=== PATIENT | male | born 1980 | race Caucasian/White ===

== ENCOUNTER 2022-11-15 20:50 | Inpatient (IN) | payer OTHER ==
[~2022-11-15] VITALS: Ht 170.2 cm; Wt 74.8 kg
[2022-11-15 21:10] VITALS: BP 126/88; PULSE 115; RESP 20; TEMP 98; O2SAT 98
--- NOTE | 2022-11-15 21:24 | NUR ---
pt went to lobby
--- NOTE | 2022-11-15 21:48 | NUR ---
PT AMBULATED TO BED 11.
--- NOTE | 2022-11-15 22:20 | NUR ---
BETINAD examining patient.
--- NOTE | 2022-11-15 22:35 | NUR ---
Patient taken to CT.
[2022-11-15 22:42] LABS: BASOPHILS % (AUTO) 0.4 % (0.0-2.0); EOSINOPHILS # (AUTO) 0.2 K/uL (0-0.4); EOSINOPHILS % (AUTO) 2.7 % (0.0-4.0); HEMATOCRIT 25.4 % (36-52); HEMOGLOBIN 8.8 g/dL (12.0-18.0); LYMPHOCYTES # (AUTO) 0.4 K/uL (2.0-11.5); LYMPHOCYTES % (AUTO) 5.6 % (20.5-51.1); MEAN CORPUSCULAR HEMOGLOBIN 36 pg (27-31); MEAN CORPUSCULAR HGB CONC 35 g/dL (33-37); MEAN CORPUSCULAR VOLUME 102.7 fL (80-94); MONOCYTES # (AUTO) 0.7 K/uL (0.8-1.0); MONOCYTES % (AUTO) 9.7 % (1.7-9.3); NEUTROPHILS # (AUTO) 5.5 K/uL (1.8-7.7); NEUTROPHILS % (AUTO) 81.6 % (42.2-75.2); PLATELET COUNT (AUTO) 106 K/uL (140-450); RED BLOOD CELL COUNT(AUTO) 2.47 MIL/uL (4.20-6.10); RED CELL DISTRIBUTION WIDTH 18.1 % (11.6-13.7); WHITE BLOOD COUNT (AUTO) 6.8 K/uL (4.8-10.8)
--- NOTE | 2022-11-15 22:52 | NUR ---
Patient is a 41/M, known case of liver cirrhosis, came in due to a month long history of dull, generalized abdominal pain, 9/10, accompanied by bloatedness, occasional shortness of breath and jaundice. Patient denies fever/chills, nausea/vomiting/diarrhea, cough/colds or chest pain. Patient had paracentesis 1 week ago. PMHx: Liver Cirrhosis NKA
[2022-11-15] MEDS ORDERED: PANT40EC PO (22:56)
[2022-11-15 23:09] LABS: ALBUMIN 1.9 g/dL (3.4-5.0); CARBON DIOXIDE 24.7 mmol/L (21-32); POTASSIUM 3.7 mmol/L (3.5-5.1); TOTAL BILIRUBIN 21.6 mg/dL (0.0-1.0)
[2022-11-15 23:13] LABS: CREATININE 1.1 mg/dL (0.6-1.3)
[2022-11-15 23:17] LABS: PROTHROMBIN TIME 21.5 secs (10.8-13.4)
--- NOTE | 2022-11-16 00:11 | NUR ---
Patient in awake in bed with no signs of acute distress at this time. Side rails up and call light within reach.
--- NOTE | 2022-11-16 00:42 | NUR ---
URINE TO LAB
[2022-11-16] MEDS ORDERED: MORPHINE SULFATE 4 MG/ML SYR IVP ONE (00:45)
[2022-11-16] MEDS ORDERED: POTASSIUM CHLORIDE 10 MEQ TABER PO PRN (00:55)
[2022-11-16] MEDS ORDERED: ACETAMINOPHEN 325 MG TAB PO PRN (00:55)
[2022-11-16] MEDS ORDERED: LORazepam 1 MG TAB PO PRN (00:55)
[2022-11-16] MEDS ORDERED: MORPHINE SULFATE 2 MG/ML SYR IVP PRN (00:55)
[2022-11-16] MEDS ORDERED: MAG SULF 2000 MG/WATER PREMIX 50 ML IV PRN (00:55)
[2022-11-16] MEDS ORDERED: KCL 20 MEQ IN 100 mL PREMIX 200 ML IV PRN (00:55)
[2022-11-16] MEDS ORDERED: ZOLPIDEM 5 MG TAB PO PRN (00:55)
[2022-11-16] MEDS ORDERED: ONDANSETRON 4 MG/2 ML VIAL IVP PRN (00:55)
[2022-11-16 01:30] LABS: BILIRUBIN,URINE 3+ (NEGATIVE); BLOOD, URINE 2+ (NEGATIVE); LEUKOCYTE ESTERASE ,URINE TRACE (NEGATIVE); NITRITE, URINE POSITIVE (NEGATIVE); PH,URINE 6.5 (5.0-9.0); UGLUCOSE 1+ (NEGATIVE)
[2022-11-16 01:34] LABS: APPEARANCE,URINE HAZY (CLEAR); COLOR,URINE AMBER (YELLOW)
[2022-11-16 01:35] LABS: RBC,URINE 0-5 /HPF (0-5)
[2022-11-16 01:37] LABS: COARSE GRANULAR CASTS,URINE 0-5 /LPF (None Seen)
[2022-11-16] MEDS ORDERED: MORPHINE SULFATE 2 MG/ML SYR IVP ONE (02:00)
--- NOTE | 2022-11-16 02:04 | NUR ---
Patient asleep and comfortable in bed with no signs of acute distress at this time. Side rails up and call light within reach.
[2022-11-16 08:30] VITALS: BP 134/89; PULSE 91; RESP 20; TEMP 98.1; O2SAT 95
[2022-11-16 09:00] VITALS: RESP 18; O2SAT 95
[2022-11-16] MEDS: MORPHINE SULFATE 4 MG/ML SYR IVP PRN ×3 (10:20→20:22)
[2022-11-16] MEDS: DOCUSATE SODIUM 100 MG GELCAP PO SCH (10:24)
--- NOTE | 2022-11-16 11:25 | NUR ---
PATIENT HAS BEEN SCREENED AND CATEGORIZED MODERATE NUTRITION RISK. PATIENT WILL BE SEEN WITHIN 3-5 DAYS OF ADMISSION. 11/16/22-11/21/[address]
[2022-11-16] MEDS: FUROSEMIDE 40 MG TAB PO SCH ×2 (12:25→20:47)
[2022-11-16 16:00] VITALS: BP 131/90; PULSE 95; RESP 20; TEMP 98.1; O2SAT 97
[2022-11-16] MEDS: LACTULOSE 20 GM/30 ML UDC PO SCH ×2 (16:17→20:47)
--- NOTE | 2022-11-16 19:30 | NUR ---
RECEIVED REPORT FROM DAY SHIFT NURSE JUNIATA FOR CONTINUITY OF CARE. PATIENT IS A&O X4. PATIENT IS ON ROOM AIR, BREATHING IS NORMAL WITH SYMMETRICAL RISE AND FALL OF CHEST. IV IS A 20G RAC, NO FLUIDS RUNNING AT THIS TIME. PATIENT IS LYING SEMI-FOWLERS IN BED, AWAKE; VISITING WITH FAMILY MEMBER AT BEDSIDE. BED IS IN LOWEST POSITION, WHEELS LOCKED, CALL LIGHT IN PLACE. WILL CONTINUE TO OBSERVE PATIENT.
[2022-11-16 20:00] VITALS: BP 134/86; PULSE 104; RESP 18; TEMP 97.6; O2SAT 94
--- NOTE | 2022-11-16 21:24 | NUR ---
REASSESSMENT WAS MARKED NOT DONE FOR PREVIOUS SHIFT, BECAUSE DAY SHIFT NURSE DID NOT CHART ON REASSESSMENT OF MORPHINE. NOT SURE IF REASSESSMENT WAS PHYSICALLY DONE.
--- NOTE | 2022-11-16 21:30 | NUR ---
2100 MEDICATION ADMINISTERED TO PATIENT SUCCESSFULLY WITHOUT ANY ISSUES WITH SWALLOWING. PATIENT REQUESTED PAIN MEDICATION FOR PAIN. CHECKED VITALS AND CHART; MORPHINE WAS APPROPRIATE TO ADMINISTER. ADMINISTERED MEDICATION SUCCESSFULLY WITHOUT ANY ISSUES WITH IV. REASSESSED PATIENT AT 2122; PATIENT WAS SLEEPING. BREATHING WAS NORMAL WITH SYMMETRICAL RISE AND FALL OF CHEST. WILL CONTINUE TO OBSERVE PATIENT.
[2022-11-16] MEDS ORDERED: PHYTONADIONE 10 MG in NACL 0.9% 50 ML IV ONE (22:40)
[2022-11-17] MEDS ORDERED: PHYTONADIONE 10 MG/ML AMP SUBQ ONE (00:05)
--- NOTE | 2022-11-17 00:30 | NUR ---
NOTIFIED DEMAND EQUIPMENT REPAIRER PHYSICIAN (DR. WILSON) THAT PATIENT'S INR WAS 2.12. MD ORDERED VITAMIN K 10MG IV AND REPEAT INR IN MORNING. PUT ORDER IN. FOLLOWED UP WITH PHARMACY ON VERIFICATION ON VITAMIN K; PHARMACIST JOURDAN INFORMED ME THAT VITAMIN K IV WAS FOR EMERGENCY USE ONLY DUE TO POSSIBLE ANAPHYLAXES AND RECOMMENDED SUBCUTANEOUS VITAMIN K. MESSAGED DR. WILSON OF PHARMACIST'S RECOMMENDATION; DR. WILSON AUTHORIZED VITAMIN K SUBCUTANEOUS. ADMINISTERED MEDICATION TO PATIENT WITHOUT ANY ISSUES. WILL CONTINUE TO OBSERVE PATIENT.
[2022-11-17] MEDS: MORPHINE SULFATE 4 MG/ML SYR IVP PRN (02:23)
--- NOTE | 2022-11-17 03:30 | NUR ---
PATIENT CALLED AND REQUESTED MORPHINE FOR 9/10 PAIN. CHECKED VITALS AND CHART; MORPHINE WAS APPROPRIATE TO ADMINISTER. MEDICATION WAS ADMINISTERED SUCCESSFULLY WITHOUT ANY ISSUE WITH IV. REASSESSED MEDICATION ADMINISTRATION; PATIENT WAS SLEEPING. WILL CONTINUE TO OBSERVE PATIENT.
[2022-11-17 04:00] VITALS: BP 127/90; PULSE 102; RESP 20; TEMP 98.4; O2SAT 96
--- NOTE | 2022-11-17 06:00 | NUR ---
OBTAINED CONSENT FROM PATIENT FOR PARACENTESIS. PATIENT IS LYING IN BED, BREATHING IS NORMAL WITH SYMMETRICAL RISE AND FALL OF CHEST. WILL CONTINUE TO OBSERVE PATIENT.
[2022-11-17 06:04] LABS: BASOPHILS # (AUTO) 0.2 K/uL (0.00-0.22); BASOPHILS % (AUTO) 3.5 % (0.0-2.0); EOSINOPHILS # (AUTO) 0.3 K/uL (0-0.4); HEMATOCRIT 25.6 % (36-52); HEMOGLOBIN 8.8 g/dL (12.0-18.0); LYMPHOCYTES # (AUTO) 0.4 K/uL (2.0-11.5); LYMPHOCYTES % (AUTO) 7.1 % (20.5-51.1); MEAN CORPUSCULAR HEMOGLOBIN 35 pg (27-31); MEAN CORPUSCULAR HGB CONC 35 g/dL (33-37); MEAN CORPUSCULAR VOLUME 102.6 fL (80-94); MONOCYTES # (AUTO) 0.8 K/uL (0.8-1.0); MONOCYTES % (AUTO) 11.8 % (1.7-9.3); NEUTROPHILS # (AUTO) 4.6 K/uL (1.8-7.7); NEUTROPHILS % (AUTO) 72.6 % (42.2-75.2); PLATELET COUNT (AUTO) 110 K/uL (140-450); RED BLOOD CELL COUNT(AUTO) 2.49 MIL/uL (4.20-6.10); RED CELL DISTRIBUTION WIDTH 18.1 % (11.6-13.7); WHITE BLOOD COUNT (AUTO) 6.4 K/uL (4.8-10.8)
[2022-11-17 06:26] LABS: PROTHROMBIN TIME 22.3 secs (10.8-13.4)
[2022-11-17 06:49] LABS: ANION GAP 10.7 (8-16); CARBON DIOXIDE 27.1 mmol/L (21-32); CREATININE 1.4 mg/dL (0.6-1.3); POTASSIUM 3.8 mmol/L (3.5-5.1)
--- NOTE | 2022-11-17 07:41 | NUR ---
ENDORSED TO DAY SHIFT NURSE IRIS FOR CONTINUITY OF CARE. PATIENT IS STABLE.
--- NOTE | 2022-11-17 08:03 | NUR ---
RECEIVED REPORT FROM LOG MANAGER NURSE FOR CONTINUITY OF CARE. PATIENT IS AWAKE, ALERT AND ORIENTED X4, CONTINENT AND AMBULATORY. CURRENTLY ON ROOM AIR WITH NO APPARENT SIGNS OF ACUTE DISTRESS NOTED. PATIENT STATES NO PAIN AT THIS TIME. JAUNDICE NOTED IN BOTH EYES WELL PATIENTS SKIN, NO OPEN WOUNDS NOTED. POC DISCUSSED, CALL LIGHT WITHIN REACH, SAFETY MEASURES IN PLACE. WILL MAKE FREQUENT ROUNDS THROUGHOUT SHIFT.
[2022-11-17] MEDS: DOCUSATE SODIUM 100 MG GELCAP PO SCH (08:47)
[2022-11-17] MEDS: FUROSEMIDE 40 MG TAB PO SCH (08:48)
[2022-11-17] MEDS: LACTULOSE 20 GM/30 ML UDC PO SCH (08:49)
--- NOTE | 2022-11-17 09:02 | NUR ---
SCHEDULED MEDICATIONS ADMINISTERED. NO S/SX OF ACUTE DISTRESS NOTED AT THIS TIME. WILL CONTINUE TO MONITOR.
[2022-11-17 12:00] VITALS: BP 116/72; PULSE 84; RESP 20; TEMP 97.2; O2SAT 96
--- NOTE | 2022-11-17 14:30 | NUR ---
PATIENT LEFT AMA, EDUCATED THE PATIENT ON THE RISKS BUT STILL CHOSE TO SIGN AMA PAPERS. IV SITE AND ARM BANDS REMOVED. PT BELONGINGS WITH PATIENT.
--- NOTE | 2022-11-17 14:58 | NUR ---
DC PLANNIN YRS OLD MALE PATIENT WAS ADMITTED FROM HOME WITH A DX OF INTRACTABLE ABD PAIN. PATIENT HAS A HX OF LIVER CIRRHOSIS RECURRENT ASCITES HTN AND GASTRITIS. CT ABD/PELVIS SHOWED CIRRHOTIC LIVER. BLOOD AND URINE CULTURE PENDING. ADMINISTERED HOME MEDS. CONSULT IR FOR ULTRASOUND -GUIDED PARACENTESIS. DC PLAN TO GO HOME WHEN STABLE. CM TO FOLLOW
== END 2022-11-17 14:30 | disposition left against medical advice (07) | DRG 280 ==
LOC: MED 20:50 → MTU 11-16 01:01
PROVIDERS: ADMIT Student in an Organized Health Care Education/Training Program; ATTEND Student in an Organized Health Care Education/Training Program
DX: K70.31 Alcoholic cirrhosis of liver with ascites (principal); E43 Unspecified severe protein-calorie malnutrition; D84.9 Immunodeficiency, unspecified; E86.1 Hypovolemia; D50.9 Iron deficiency anemia, unspecified; Z53.29 Procedure and treatment not carried out because of patient's decision for other reasons; I10 Essential (primary) hypertension; Z90.49 Acquired absence of other specified parts of digestive tract; Z68.25 Body mass index [BMI] 25.0-25.9, adult
CPT/HCPCS: 36415; 80048; 80053; 81001; 82140; 83605; 83690; 83735; 85025; 85610; 85730; 87040; 87081; 87086; 96374; 99285; J2270; J3430

== ENCOUNTER 2022-11-17 15:23 | Inpatient (IN) | payer OTHER ==
[~2022-11-17] VITALS: Ht 170.2 cm; Wt 74.8 kg
[~2022-11-17 15:23] MED LIST: PANT40EC PO
[2022-11-17 16:27] VITALS: BP 122/70; PULSE 108; RESP 20; TEMP 97.9; O2SAT 97
--- NOTE | 2022-11-17 19:56 | NUR ---
PT TO BED 11 AMB
[2022-11-17] MEDS ORDERED: MORPHINE SULFATE 4 MG/ML SYR IVP ONE (20:00)
[2022-11-17] MEDS ORDERED: ONDANSETRON 4 MG/2 ML VIAL IVP PRN (20:20)
[2022-11-17] MEDS ORDERED: ACETAMINOPHEN 325 MG TAB PO PRN (20:20)
[2022-11-17] MEDS ORDERED: HYDROcodone/APAP 5/325 MG 1 TAB TAB PO PRN (20:20)
--- NOTE | 2022-11-17 22:29 | NUR ---
Report given to Inna KIM for transfer of care.
--- NOTE | 2022-11-17 22:36 | NUR ---
PATIENT HAS ORDER FOR US GUIDED PARACENTESIS AND PT-22.3 INR-2.2 PT-39.6, INFORMED DUST COLLECTOR TREATER, CALLED RADIOLOGY SPOKE WITH MCKAYLA, HE SAID TO CALL IN AM. DUST COLLECTOR TREATER MADE AWARE. Addendum: 11/17/22 at 2356 by Inna Spann RN CT GUIDED PARACENTESIS ORDERED.
[2022-11-17 22:45] VITALS: BP 129/86; PULSE 94; RESP 19; TEMP 97.7; O2SAT 96
--- NOTE | 2022-11-17 22:45 | NUR ---
RECEIVED PT A NEW ADMIT FROM ER, PATIENT AMBULATED TO THE BED FROM [facility] WITH STEADY GAIT. AT THE BEDSIDE. DENIES PAIN AT THIS TIME. NO ACUTE RESPIRATORY DISTRESS NOTED. SKIN WARM AND DRY TO TOUCH. ORIENTED TO MST SETTING, UPDATED WHITEBOARD, PROVIDED CALL LIGHT, INSTRUCTIONS ON USE PROVIDED, PT VERBALLY ACKNOWLEDGED. BED IN THE LOWEST AND LOCKED POSITION FOR SAFETY.
--- NOTE | 2022-11-18 00:10 | NUR ---
PATIENT IS ASLEEP. BREATHING EVEN AND UNLABORED. CALL LIGHT WITHIN REACH.
--- NOTE | 2022-11-18 02:01 | NUR ---
ROUNDING DONE. PATIENT IS ASLEEP. BREATHING EVEN AND UNLABORED. CALL LIGHT WITHIN REACH.
[2022-11-18] MEDS: MORPHINE SULFATE 4 MG/ML SYR IVP PRN ×3 (03:25→19:25)
[2022-11-18 04:12] VITALS: BP 123/76; PULSE 95; RESP 18; TEMP 97.4; O2SAT 96
--- NOTE | 2022-11-18 06:21 | NUR ---
PATIENT IS ASLEEP. NO DISTRESS NOTED. ALL NEEDS ATTENDED TO. SAFETY PRECAUTIONS MAINATAINED DURING THE SHIFT, CALL LIGHT REMAINS WITHIN REACH.
[2022-11-18 06:58] LABS: ANION GAP 9.9 (8-16); CARBON DIOXIDE 28.3 mmol/L (21-32); CREATININE 1.3 mg/dL (0.6-1.3); POTASSIUM 3.2 mmol/L (3.5-5.1)
[2022-11-18 06:59] LABS: BASOPHILS # (AUTO) 0.2 K/uL (0.00-0.22); BASOPHILS % (AUTO) 2.8 % (0.0-2.0); EOSINOPHILS # (AUTO) 0.3 K/uL (0-0.4); EOSINOPHILS % (AUTO) 4.8 % (0.0-4.0); HEMATOCRIT 22.4 % (36-52); HEMOGLOBIN 7.9 g/dL (12.0-18.0); LYMPHOCYTES # (AUTO) 0.5 K/uL (2.0-11.5); LYMPHOCYTES % (AUTO) 8.7 % (20.5-51.1); MEAN CORPUSCULAR HEMOGLOBIN 36 pg (27-31); MEAN CORPUSCULAR HGB CONC 36 g/dL (33-37); MEAN CORPUSCULAR VOLUME 102.5 fL (80-94); MONOCYTES # (AUTO) 0.8 K/uL (0.8-1.0); NEUTROPHILS # (AUTO) 4.2 K/uL (1.8-7.7); NEUTROPHILS % (AUTO) 69.7 % (42.2-75.2); PLATELET COUNT (AUTO) 93 K/uL (140-450); RED BLOOD CELL COUNT(AUTO) 2.18 MIL/uL (4.20-6.10); RED CELL DISTRIBUTION WIDTH 18.2 % (11.6-13.7)
--- NOTE | 2022-11-18 07:15 | NUR ---
RECEIVED BEDSIDE REPORT FROM LOAD TEST MECHANIC NURSE FOR CONTINUITY OF CARE. PT IS ASLEEP, NO SIGN OF DISTRESS. CALL LIGHT WITHIN REACH.
[2022-11-18 08:00] VITALS: BP 132/89; PULSE 98; RESP 17; TEMP 97.4; O2SAT 96
--- NOTE | 2022-11-18 08:46 | NUR ---
PATIENT HAS BEEN SCREENED AND CATEGORIZED LOW NUTRITION RISK. PATIENT WILL BE SEEN WITHIN 7 DAYS OF ADMISSION. 11/24/[address]
[2022-11-18 09:06] LABS: PROTHROMBIN TIME 23.4 secs (10.8-13.4)
[2022-11-18 16:00] VITALS: BP 108/81; PULSE 96; PULSE 98; RESP 17; TEMP 98.3; O2SAT 96
[2022-11-18] MEDS ORDERED: PHYTONADIONE 10 MG/ML AMP SUBQ SCH (17:45)
[2022-11-18] MEDS ORDERED: POTASSIUM CHLORIDE 10 MEQ TABER PO PRN (19:00)
--- NOTE | 2022-11-18 19:15 | NUR ---
ENDORSED PT TO DUMP MOTOR OPERATOR NURSE FOR CONTINUITY OF CARE. PT IS AWAKE, NO SIGN OF DISTRESS. CALL LIGHT WITHIN REACH.
--- NOTE | 2022-11-18 19:25 | NUR ---
RECEIVED PT IN BED AWAKE, ALERT AND ORIENTED X 4. FAMILY MEMBER AT THE BEDSIDE. COMPLAINING OF 8/10 ABDOMINAL PAIN, MEDICATED ORDERED. NO ACUTE RESPIRATORY DISTRESS NOTED. SKIN WARM AND DRY TO TOUCH. SAFETY PRECAUTIONS IN PLACE, CALL LIGHT IN REACH,ENCOURAGED TO CALL IF ASSISTANCE IS NEEDED.
[2022-11-18 20:00] VITALS: BP 125/90; PULSE 97; RESP 18; TEMP 98.4; O2SAT 97
--- NOTE | 2022-11-18 20:25 | NUR ---
RE-ASSESSED FOR PAIN, CURRENTLY PT DENIES PAIN. WATCHING TV AT THIS TIME.
--- NOTE | 2022-11-19 | NUR ---
ROUNDING DONE. PATIENT IS ASLEEP. BREATHING EVEN AND UNLABORED. CALL LIGHT WITHIN REACH.
[2022-11-19] MEDS: MORPHINE SULFATE 4 MG/ML SYR IVP PRN ×5 (00:51→23:27)
[2022-11-19 04:00] VITALS: BP 111/79; PULSE 97; RESP 18; TEMP 98.2; O2SAT 97
[2022-11-19 06:03] LABS: BASOPHILS # (AUTO) 0.1 K/uL (0.00-0.22); BASOPHILS % (AUTO) 1.3 % (0.0-2.0); EOSINOPHILS # (AUTO) 0.3 K/uL (0-0.4); EOSINOPHILS % (AUTO) 4.7 % (0.0-4.0); HEMATOCRIT 23.3 % (36-52); HEMOGLOBIN 8.2 g/dL (12.0-18.0); LYMPHOCYTES # (AUTO) 0.4 K/uL (2.0-11.5); LYMPHOCYTES % (AUTO) 7.8 % (20.5-51.1); MEAN CORPUSCULAR HEMOGLOBIN 36 pg (27-31); MEAN CORPUSCULAR HGB CONC 35 g/dL (33-37); MEAN CORPUSCULAR VOLUME 103.5 fL (80-94); MONOCYTES # (AUTO) 0.8 K/uL (0.8-1.0); MONOCYTES % (AUTO) 14.1 % (1.7-9.3); NEUTROPHILS % (AUTO) 72.1 % (42.2-75.2); PLATELET COUNT (AUTO) 97 K/uL (140-450); RED BLOOD CELL COUNT(AUTO) 2.25 MIL/uL (4.20-6.10); RED CELL DISTRIBUTION WIDTH 18.4 % (11.6-13.7); WHITE BLOOD COUNT (AUTO) 5.6 K/uL (4.8-10.8)
--- NOTE | 2022-11-19 06:28 | NUR ---
PATIENT IS ASLEEP. NO DISTRESS NOTED. ALL NEEDS ATTENDED TO. SAFETY PRECAUTIONS MAINTAINED DURING THE SHIFT, CALL LIGHT REMAINS WITHIN REACH.
[2022-11-19 06:43] LABS: ANION GAP 9.2 (8-16); CARBON DIOXIDE 29.3 mmol/L (21-32); CREATININE 1.2 mg/dL (0.6-1.3); POTASSIUM 3.5 mmol/L (3.5-5.1)
--- NOTE | 2022-11-19 07:10 | NUR ---
RECEIVED REPORT FROM ORANGE PICKING SUPERVISOR NURSE FOR CONTINUITY OF CARE. PT STABLE AT THIS TIME.
[2022-11-19 08:00] VITALS: BP 122/89; PULSE 89; RESP 18; TEMP 96.9; O2SAT 96
[2022-11-19 08:19] LABS: PROTHROMBIN TIME 22.6 secs (10.8-13.4)
--- NOTE | 2022-11-19 08:22 | NUR ---
HELD DO TO PTS PT/INR/PTT ALL BEING HIGH. PT SUPPOSED TO HAVE CENTESIS TODAY. Addendum: 11/19/22 at 1017 by Suha Ennis RN PT HEPARIN WAS HELD
[2022-11-19] MEDS ORDERED: PHYTONADIONE 10 MG in NACL 0.9% 50 ML IV SCH (09:30)
--- NOTE | 2022-11-19 11:56 | NUR ---
DC PLANN[age] YRS OLD MALE PATIENT WAS ADMITTED FROM HOME WITH A DX OF ASCITES. PATIENT HAS A HX OF ALCOHOL CIRRHOSIS.PATIENT HAS AN ORDER FOR PARACENTESIS. PER IR UNABLE TO PERFORM PARACENTESIS BECAUSE OF HIGH INR 51.5. ADMINISTERED VIT K AND CONTINUED HOME MEDS. DC PLAN AWAITING FOR THE INR TO BE WNL. CM TO FOLLOW Addendum: 11/20/22 at 1159 by Anushka Cho RN DC PLANNING: INR LEVEL 51.5 ON VITK IV UNABLE TO PERFORM PARACENTESIS AT THIS TIME. CM TO FOLLOW
[2022-11-19 12:39] VITALS: PULSE 89; RESP 18; O2SAT 96
[2022-11-19 16:00] VITALS: BP 117/76; PULSE 94; RESP 18; TEMP 98.3; O2SAT 98
--- NOTE | 2022-11-19 16:16 | NUR ---
Burring Machine Operator ART CONSULTANT conducted a discharge planning assessment with pts. Throughout interview, pt. was guarded did not make eye contact and was short in his responses. ART CONSULTANT confirmed the demographics on the face sheet. Pt . has insight as to why he is in the hospital, stated he is participating in an outpatient program, [place]. Pt. is a long-time drinker and stated he is currently participating in [place] program. He has missed participating in this outpt. due to being hospitalized. ART CONSULTANT asked pt. to bring his discharge paperwork with him when he returns. Pt. has been in contact with [place], [phone], from [place] to alert him of his hospitalization. ART CONSULTANT provided pt. with additional resources and will remain available as needed.
--- NOTE | 2022-11-19 19:18 | NUR ---
ENDORSED TO GREEN FEED ATTENDANT NURSE FOR CONTINUITY OF CARE. PT STABLE AT THIS TIME.
--- NOTE | 2022-11-19 19:19 | NUR ---
RECEIVED BEDSIDE REPORT FROM YAZ KIM FOR CONTINUITY OF CARE. PATIENT IS AWAKE AND STABLE. A&OX4. PATIENT WAS MEDICATED BY YAZ KIM FOR SEVERE PAIN 20 MINUTES AGO. ON ROOM AIR WITH NO APPARENT S/SX OF ACUTE DISTRESS. RESPIRATIONS EVEN AND UNLABORED. IV SITE TO THE RFA 20G PATENT/INTACT SL. PATIENT CURRENTLY ON BR. PLAN OF CARE AND WHITE COMMUNICATION BOARD UPDATED. ALL SAFETY MEASURES IN PLACE. CALL LIGHT WITHIN REACH. ENCOURAGED TO CALL FOR ANY NEEDS/ASSISTANCE. BED IN LOW/LOCKED POSITION. SIDE RAILS X2 UP. WILL CONTINUE TO MONITOR.
[2022-11-19 20:00] VITALS: BP 123/81; PULSE 89; RESP 16; TEMP 98.7; O2SAT 97
--- NOTE | 2022-11-19 21:10 | NUR ---
DID NOT ADMINISTER SCHEDULED HEPARIN DUE TO LOW PLATELET 97. INFORMED PATIENT. PATIENT VERBALIZED UNDERSTANDING. PATIENT REPORTS PRN MEDICATION WAS EFFECTIVE THAT WAS ADMINISTERED IN 1649 SINCE PAIN IS REDUCED TO 4/10. RESPIRATIONS EVEN AND UNLABORED WITH NO APPARENT S/SX OF ACUTE DISTRESS. WHITE COMMUNICATION BOARD UPDATED. ALL SAFETY MEASURES IN PLACE. CALL LIGHT WITHIN REACH. ENCOURAGED TO CALL FOR ANY NEEDS/ASSISTANCE. BED IN LOW/LOCKED POSITION. SIDE RAILS X2 UP. WILL CONTINUE TO MONITOR.
--- NOTE | 2022-11-19 23:05 | NUR ---
PATIENT C/O 12/11 ABDOMINAL PAIN. ENDORSED TO SHADE RN FOR IV PRN COVERAGE. BP AND HR WNL. RESPIRATIONS EVEN AND UNLABORED WITH NO APPARENT S/SX OF ACUTE DISTRESS. WHITE COMMUNICATION BOARD UPDATED. ALL SAFETY MEASURES IN PLACE. CALL LIGHT WITHIN REACH. ENCOURAGED TO CALL FOR ANY NEEDS/ASSISTANCE. BED IN LOW/LOCKED POSITION. WILL CONTINUE TO MONITOR.
--- NOTE | 2022-11-20 03:10 | NUR ---
CHECKED PATIENT. PATIENT IS STABLE AND ASLEEP WITH NO FACIAL GRIMACING. FLACC=0. CHEST IS RISING AND FALLING SYMMETRICALLY. RESPIRATIONS EVEN AND UNLABORED WITH NO APPARENT S/SX OF ACUTE DISTRESS. WHITE COMMUNICATION BOARD UPDATED. ALL SAFETY MEASURES IN PLACE. CALL LIGHT WITHIN REACH. BED IN LOW/LOCKED POSITION. WILL CONTINUE TO MONITOR.
[2022-11-20 04:00] VITALS: BP 133/83; PULSE 89; RESP 18; TEMP 97.7; O2SAT 96
[2022-11-20] MEDS: MORPHINE SULFATE 4 MG/ML SYR IVP PRN ×4 (04:46→20:22)
--- NOTE | 2022-11-20 05:10 | NUR ---
PATIENT IS AWAKE AND STABLE. PATIENT WAS MEDICATED AT 0446 FOR SEVERE PAIN. WILL REASSESS AT 0546. RESPIRATIONS EVEN AND UNLABORED WITH NO APPARENT S/SX OF ACUTE DISTRESS. ALL NEEDS MET AT THIS TIME. WHITE COMMUNICATION BOARD UPDATED. ALL SAFETY MEASURES IN PLACE. CALL LIGHT WITHIN REACH. ENCOURAGED TO CALL FOR ANY NEEDS/ASSISTANCE. BED IN LOW/LOCKED POSITION. SIDE RAILS X2 UP. WILL CONTINUE TO MONITOR.
[2022-11-20] MEDS ORDERED: PHYTONADIONE 10 MG/ML AMP ONE (06:20)
[2022-11-20 06:44] LABS: BASOPHILS # (AUTO) 0.2 K/uL (0.00-0.22); BASOPHILS % (AUTO) 3.9 % (0.0-2.0); EOSINOPHILS # (AUTO) 0.3 K/uL (0-0.4); EOSINOPHILS % (AUTO) 5.2 % (0.0-4.0); HEMATOCRIT 23.6 % (36-52); HEMOGLOBIN 8.3 g/dL (12.0-18.0); LYMPHOCYTES # (AUTO) 0.4 K/uL (2.0-11.5); LYMPHOCYTES % (AUTO) 8.2 % (20.5-51.1); MEAN CORPUSCULAR HEMOGLOBIN 36 pg (27-31); MEAN CORPUSCULAR HGB CONC 35 g/dL (33-37); MEAN CORPUSCULAR VOLUME 102.8 fL (80-94); MONOCYTES # (AUTO) 0.8 K/uL (0.8-1.0); MONOCYTES % (AUTO) 14.4 % (1.7-9.3); NEUTROPHILS # (AUTO) 3.7 K/uL (1.8-7.7); NEUTROPHILS % (AUTO) 68.3 % (42.2-75.2); PLATELET COUNT (AUTO) 105 K/uL (140-450); RED CELL DISTRIBUTION WIDTH 18.8 % (11.6-13.7); WHITE BLOOD COUNT (AUTO) 5.4 K/uL (4.8-10.8)
[2022-11-20 06:45] LABS: ANION GAP 10.8 (8-16); POTASSIUM 3.8 mmol/L (3.5-5.1); PROTHROMBIN TIME 23.9 secs (10.8-13.4)
--- NOTE | 2022-11-20 07:10 | NUR ---
ENDORSED PATIENT TO YAZ RN FOR CONTINUITY OF CARE. PATIENT IS STABLE.
--- NOTE | 2022-11-20 07:10 | NUR ---
RECEIVED REPORT FROM BUILDING TECH NURSE FOR CONTINUITY OF CARE. PT STABLE AT THIS TIME.
[2022-11-20] MEDS ORDERED: PHYTONADIONE 10 MG in NACL 0.9% 50 ML IV SCH (07:15)
[2022-11-20 08:00] VITALS: BP 133/86; PULSE 109; RESP 18; TEMP 97.8; O2SAT 98
--- NOTE | 2022-11-20 08:25 | NUR ---
HELT PTS HEPARIN DO TO PTS PT/INR/PTT ALL BEING HIGH. PT SUPPOSED TO HAVE PARACENTESIS TODAY.
[2022-11-20 09:00] LABS: ALBUMIN 1.6 g/dL (3.4-5.0); BILIRUBIN,DIRECT 10.9 mg/dL (0.0-0.3); TOTAL BILIRUBIN 16.1 mg/dL (0.0-1.0)
--- NOTE | 2022-11-20 12:11 | NUR ---
Met with patient at bedside to discuss his desire to leave [place]. 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 I inquired who has them now, and he stated his sister, but she is leaving for [place]. I explained the circumstances surrounding his procedure and why he has to wait the the procedure until his levels come down. The patient presented irritable and inquired about transferring to a different hospital in order to get the procedure done faster. I advised him on how hospital transfers take place, and at this time, there is no clinical need to transfer him to a different hospital, as this hospital is able to meet his needs. At the end of the conversation, the patient indicated that he is willing to stay until tomorrow afternoon, but anything longer, he will likely leave. Prior to leaving, I inquired about his treatment program at [facility]. Per patient, he participated in an outpatient program Thursday - Thursday from 10a to 12:30p.
[2022-11-20 16:00] VITALS: BP 112/76; PULSE 99; RESP 18; TEMP 97.2; O2SAT 98
--- NOTE | 2022-11-20 19:48 | NUR ---
ENDORSED TO EDUCATIONAL ADMINISTRATOR NURSE FOR CONTINUITY OF CARE. PT STABLE AT THIS TIME.
--- NOTE | 2022-11-20 19:50 | NUR ---
RECEIVED REPORT FROM DAY SHIFT NURSE FOR CONTINUITY OF CARE. PT STABLE AT THIS TIME.PT AMBULATORY, FAMILY AT BEDSIDE. DISTENDED ABDOMEN NOTED. NO COMPLAINS OF PAIN AT THIS TIME. NO S/SX OF DISTRESS. ALL PRECAUTIONS IN PLACE. CALL LIGHT WITHIN REACH. WILL CONTINUE TO MONITOR.
[2022-11-20 20:00] VITALS: BP 106/63; PULSE 101; RESP 18; TEMP 96.9; O2SAT 96; O2SAT 98
--- NOTE | 2022-11-21 | NUR ---
PT ASLEEP IN BED. VISIBLE CHEST RISE AND FALL NOTED. NO S/SX OF DISTRESS. ALL PRECAUTIONS IN PLACE. CALL LIGHT WITHIN REACH. WILL CONTINUE TO MONITOR.
[2022-11-21] MEDS: MORPHINE SULFATE 4 MG/ML SYR IVP PRN ×2 (04:51→10:00)
--- NOTE | 2022-11-21 05:38 | NUR ---
PT ASLEEP IN BED. VISIBLE CHEST RISE AND FALL NOTED. NO S/SX OF DISTRESS. ALL PRECAUTIONS IN PLACE. CALL LIGHT WITHIN REACH. WILL CONTINUE TO MONITOR.
[2022-11-21 06:28] LABS: ANION GAP 9.8 (8-16); CARBON DIOXIDE 28.8 mmol/L (21-32); POTASSIUM 3.6 mmol/L (3.5-5.1)
[2022-11-21 06:40] LABS: BASOPHILS # (AUTO) 0.1 K/uL (0.00-0.22); BASOPHILS % (AUTO) 2.6 % (0.0-2.0); EOSINOPHILS # (AUTO) 0.3 K/uL (0-0.4); EOSINOPHILS % (AUTO) 5.3 % (0.0-4.0); HEMATOCRIT 22.6 % (36-52); HEMOGLOBIN 7.9 g/dL (12.0-18.0); LYMPHOCYTES # (AUTO) 0.4 K/uL (2.0-11.5); LYMPHOCYTES % (AUTO) 6.7 % (20.5-51.1); MEAN CORPUSCULAR HEMOGLOBIN 36 pg (27-31); MEAN CORPUSCULAR HGB CONC 35 g/dL (33-37); MEAN CORPUSCULAR VOLUME 103.2 fL (80-94); MONOCYTES # (AUTO) 0.8 K/uL (0.8-1.0); MONOCYTES % (AUTO) 14.4 % (1.7-9.3); NEUTROPHILS # (AUTO) 3.9 K/uL (1.8-7.7); PLATELET COUNT (AUTO) 93 K/uL (140-450); RED BLOOD CELL COUNT(AUTO) 2.19 MIL/uL (4.20-6.10); RED CELL DISTRIBUTION WIDTH 19.8 % (11.6-13.7); WHITE BLOOD COUNT (AUTO) 5.5 K/uL (4.8-10.8)
--- NOTE | 2022-11-21 07:25 | NUR ---
RECEIVED PT FROM PEDIATRICS TEACHER NURSE FOR CONTINUITY OF CARE. PT IS AWAKE, AOX4. ABLE TO VERBALIZE NEEDS. RESPIRATIONS EVEN AND UNLABORED ON RA. ABDOMEN DISTENDED. PT DENIES ANY PAIN AT THIS TIME. SKIN WARM AND DRY. IV ON RFA 18G, SL. CALL LIGHT WITHIN REACH. ALL SAFETY PRECAUTIONS IN PLACE.
--- NOTE | 2022-11-21 07:52 | NUR ---
Patient's Plan of Care was discussed and reviewed with EP TECHNOLOGIST: EM
[2022-11-21 08:00] VITALS: BP 117/67; PULSE 101; RESP 20; TEMP 98.8; O2SAT 98
[2022-11-21 09:28] LABS: PROTHROMBIN TIME 23.2 secs (10.8-13.4)
== END 2022-11-21 10:50 | disposition left against medical advice (07) | DRG 280 ==
LOC: MED 15:23 → MMU 20:17 → OBSVTOIN 20:18 → MTU 22:21
PROVIDERS: ADMIT Student in an Organized Health Care Education/Training Program; ATTEND Student in an Organized Health Care Education/Training Program
DX: K70.31 Alcoholic cirrhosis of liver with ascites (principal); E43 Unspecified severe protein-calorie malnutrition; F10.90 Alcohol use, unspecified, uncomplicated; R79.1 Abnormal coagulation profile; Y90.9 Presence of alcohol in blood, level not specified; Z68.25 Body mass index [BMI] 25.0-25.9, adult; Z53.29 Procedure and treatment not carried out because of patient's decision for other reasons
CPT/HCPCS: 36415; 80048; 80076; 85025; 85610; 85730; 87081; 99285; J1644; J2270; J3430